=== PATIENT | female | born 1985 | race Caucasian/White ===

== ENCOUNTER 2016-09-06 00:25 | Inpatient (IN) ==
--- NOTE | 2016-09-06 01:07 | ED EKG INTERP ---
This chart was entered by Eric Edmond Scribe, acting as scribe for David Mir MD. EKG Interpretation - EKG Time of EKG reading by physician:: 00:48 EKG Read and Signed by:: David Mir EKG Interpretation (*Must complete 3 of following elements*): Abnormal ( biatrial enlargement; Nonspecific ST and T wave abnormality) Rate: 138 Rhythm: Sinus tachycardia with PAC with aberrant conduction This chart was documented by the indicated scribe, (Eric Edmond Scribe) and accurately reflects the services I performed and decisions made by , David Mir MD, as attested by the provider's signature.
[2016-09-06 03:24] LABS: BASO% 0.1 % (0.0-0.8); HEMATOCRIT 39.9 % (37.0-47.0); HEMOGLOBIN 13.9 g/dL (12.0-16.0); IMM GRAN# 0.04 X1000 (0.0-0.04); IMM GRAN% 0.2 % (0.0-0.5); LYMPH# 0.68 X1000 (1.2-3.4); LYMPH% 3.5 % (20.5-51.1); MANUAL DIFF NEEDED? NO; MCH 31.7 PG (27-31); MCHC 34.8 g/dL (33-37); MCV 90.9 FL (81-99); MONO# 1.21 X1000 (0.11-0.59); MONO% 6.1 % (1.7-9.3); MPV 11.9 FL (7.4-10.4); NEUT% 90.1 % (42.2-75.2); PLT 200 X1000 (130-400); RBC 4.39 XMIL (4.2-5.4)
[2016-09-06 03:48] LABS: AGAP 20; ALBUMIN 3.5 g/dL (3.5-5.0); ALKALINE PHOSPHATASE 49 U/L (32-104); AMYLASE 40 U/L (20-200); BUN 11 mg/dL (8-22); CALCIUM 8.9 mg/dL (8.8-10.2); CHLORIDE 96 mmol/L (98-107); COSMO 273; GOT 21 U/L (10-30); GPT 17 U/L (10-36); LIPASE 9 U/L (13-60); SODIUM 136 mmol/L (136-145); TCO2 20 mmol/L (25-35); TOTAL BILIRUBIN 0.45 mg/dL (0.20-1.00); TOTAL PROTEIN 7.4 g/dL (6.3-8.3)
[2016-09-06] MEDS ORDERED: NS 1,000 ML IV ONE ×2 (04:42→08:36)
[2016-09-06] MEDS ORDERED: ZOFRAN IV ONE (04:42)
[2016-09-06] MEDS ORDERED: ZOSYN 3.375 GM/NS 3.375 GM/50 ML IVPB IV ONE (07:35)
[2016-09-06] MEDS ORDERED: NS + KCL 20 MEQ 1,000 ML IV ONE (07:35)
[2016-09-06] MEDS ORDERED: FLAGYL 500 MG/NS 500 MG/100 ML IVPB IV ONE (07:35)
[2016-09-06 08:13] LABS: URINE CULTURE NEEDED? NO; URINE MICRO REVIEW NEEDED? NO; URINE SOURCE CLEAN CATCH
[2016-09-06 08:17] LABS: BILIRUBIN URINE NEGATIVE (NEGATIVE); BLOOD URINE SMALL (NEGATIVE); COLOR YELLOW; GLUCOSE URINE NEGATIVE (NEGATIVE); LEUKOCYTES URINE NEGATIVE (NEGATIVE); NITRITE URINE NEGATIVE (NEGATIVE); PH URINE 6.5; PROTEIN URINE 70 mg/dL (NEGATIVE); TURBIDITY URINE CLEAR (CLEAR); UR EPITHELIAL CELLS <10 /HPF (<10); URINE BACTERIA NEGATIVE /HPF; URINE RBC <10 /HPF (<10); URINE WBC <10 /HPF (<10); UROBILINOGEN URINE NORMAL (NORMAL)
[2016-09-06 08:25] LABS: SP GRAVITY URINE 1.015
[2016-09-06] MEDS ORDERED: DOXYCYCLINE 100 MG in NS 250 ML IV ONE (09:00)
[2016-09-06] MEDS ORDERED: PHENERGAN IV PRN (09:13)
[2016-09-06 09:39] LABS: ACETONE SERUM SMALL (NEGATIVE)
[2016-09-06] MEDS ORDERED: SODIUM CHLORIDE 0.9% 20 ML ONE (09:53)
[2016-09-06 09:54] LABS: ACETAMINOPHEN 1.8 ug/mL (10-30); INR 1.08; PROTIME 11.4 Seconds (9.2-11.7)
--- NOTE | 2016-09-06 10:10 | Diag Imaging Result Document ---
PROCEDURE NAME: CT ABD/PELVIS W/ IV CONT ONLY - 09/06/2016 CT ABDOMEN AND PELVIS WITH INTRAVENOUS CONTRAST: TECHNIQUE: Dose reduction protocol. FINDINGS: There is a nonspecific 4 mm noncalcified nodule in the left lower lobe. No basilar infiltrates. No pleural effusions. There is quite a bit of subcutaneous air and intraabdominal air apparently related to the patient's recent surgery. Normal spleen, pancreas, gallbladder, adrenal glands , liver, and kidneys. No hydronephrosis. Normal aorta. There is diffuse colonic wall thickening throughout with mild adjacent inflammation. The urinary bladder is only mildly distended and there is thickening to the wall. The uterus has been removed. There are prominent inflammatory changes within the pelvis. Questionable developing fluid collection in the midpelvis measuring approximately 1.5 x 4.5 cm. There is free fluid within the pelvis. IMPRESSION: 1. Diffuse colitis. 2. Recent hysterectomy with prominent pelvic inflammatory changes and possibly a developing abscess. 3. Likely reactive thickening to the wall of the urinary bladder rather than cystitis. A preliminary report was given at 7:14 a.m. MTDD
--- NOTE | 2016-09-06 10:31 | HISTORY AND PHYSICAL ---
CHIEF COMPLAINT: Diarrhea, vomiting, and fever. HISTORY OF PRESENT ILLNESS: Mrs. Gallardo is a 31-year-old, female, with no medical problems who is status post laparoscopic hysterectomy by Dr. Morales 3 days ago secondary to severe pelvic adhesions. Patient reports, since that time she has been having diffuse vomiting, diarrhea, and fever of 100.3 degrees Fahrenheit. She also reports that she had what she believes is a small amount of blood in her stool yesterday. She denies any overt abdominal pain. She has no other real complaints with the exception of the profuse vomiting and diarrhea. Her surgical report done on Thursday, surgery was done without complications. She came to the ER for evaluation. She was noted to have a white count and tachycardia consistent with sepsis. She was also acidotic with elevated anion gap and hypokalemic. CT of the abdomen and pelvis revealed diffuse colitis, small pelvic abscess, and cystitis. Dr. Morales with [employer] [employer] was consulted. He came and saw the patient and examined her in the ER. Blood cultures have been obtained and broad-spectrum antibiotics have been initiated. The patient is now going to be admitted for further treatment and evaluation. PAST MEDICAL HISTORY: None. SURGICAL HISTORY: 1. Recent laparoscopic hysterectomy. 2. section x2. SOCIAL HISTORY: Patient denies tobacco, alcohol, or drug use. FAMILY HISTORY: None. REVIEW OF SYSTEMS: Fourteen-point review of systems obtained and found to be negative with the exception of the HPI. ALLERGIES: Codeine. HOME MEDICATIONS: Tylenol and tramadol as needed. PHYSICAL EXAMINATION: VITAL SIGNS: Blood pressure is 110/59, heart rate 114, O2 saturation 97% on room air. Temperature is 98.4 degrees. GENERAL: This is a well-developed, well-nourished, female, lying in the hospital bed in no acute distress. NEUROLOGIC: The patient is awake, alert, and oriented. She follows commands without focal deficits. HEENT: Head atraumatic, normocephalic. Pupils are equal, round, reactive to light. Oral mucosa is dry. Trachea is midline. CHEST: Clear to auscultation bilaterally. CARDIOVASCULAR: Tachy but regular. S1-S2 is noted. No murmurs, gallops, clicks, or rubs. GASTROINTESTINAL: Laparoscopic surgical incisions are clean, dry, and intact. Belly is soft and nondistended. She has no tenderness to palpation. EXTREMITIES: Without edema, clubbing, or cyanosis. Pulses are palpable bilaterally. DIAGNOSTIC DATA: CT shows small pelvic abscess, colitis, and cystitis. There is also pneumoperitoneum which is expected postoperatively. WBC 19.71, hemoglobin 13.9, hematocrit 39.9, platelet count 200,000. Sodium 136, potassium 3.0, chloride 96, CO2 of 20, anion gap 20, BUN 11, creatinine 0.6, glucose 126. LFTs within normal limits. Albumin 3.5, lipase 9, lactate 1.1. UA is negative for any acute process. There is small blood and 70 protein. ASSESSMENT AND PLAN: 1. Sepsis: Source is likely to be an intra-abdominal process. Whether it be cystitis, colitis, or abscess. Blood cultures have been obtained. We will also culture urine and sputum. Continue broad-spectrum antibiotics directed at intra-abdominal processes. 2. Colitis/cystitis/intra-abdominal abscess: ASS[facility] RECOVERY SPECIALIST has seen the patient in the ER this morning. Dr. Morales does not feel the patient will need any type of I and D at this time. We are going to start Zosyn and doxycycline and send labs for gonorrhea and chlamydia for possible pelvic inflammatory disease, and we will also consult Infectious Disease. 3. Elevated anion gap metabolic acidosis: Lactate is within normal limits. Although lactate was drawn at 7:00 this morning, her initial anion gap acidosis was noted to be around midnight, and she has been getting fluids since then. We will go ahead and continue to work up with salicylate, acetaminophen, and acetone test. 4. Colitis: We are going to check stool studies and start Zosyn. ID has been consulted. 5. Deep venous thrombosis prophylaxis with sequential compression devices and TEDS. Given her recent surgery, further recommendations to follow. Dictated by NICOLETTE Salazar for Santos Aguilar MD cc: NICOLETTE Salazar MD
[2016-09-06] MEDS ORDERED: TYLENOL PO PRN (10:37)
[2016-09-06] MEDS ORDERED: SODIUM CHLORIDE 0.9% INJ SCH (10:37)
[2016-09-06] MEDS ORDERED: MORPHINE IV PRN (10:37)
[2016-09-06] MEDS ORDERED: SODIUM CHLORIDE 0.9% INJ PRN (10:37)
[2016-09-06] MEDS: PROTONIX IV SCH (11:04)
[2016-09-06] MEDS: NS 1,000 ML IV SCH ×3 (11:04→20:04)
[2016-09-06] MEDS: ZOSYN 3.375 GM/NS 3.375 GM/50 ML IVPB IV SCH ×3 (12:53→20:04)
[2016-09-06] MEDS: DOXYCYCLINE 100 MG in NS 250 ML IV SCH (20:04)
[2016-09-07] MEDS: ZOSYN 3.375 GM/NS 3.375 GM/50 ML IVPB IV SCH ×4 (02:14→20:04)
[2016-09-07] MEDS: NS 1,000 ML IV SCH ×4 (02:14→16:14)
[2016-09-07 07:23] LABS: HEMATOCRIT 33.3 % (37.0-47.0); HEMOGLOBIN 10.9 g/dL (12.0-16.0); MCH 31.1 PG (27-31); MCHC 32.7 g/dL (33-37); MCV 95.1 FL (81-99); MPV 11.6 FL (7.4-10.4); RBC 3.5 XMIL (4.2-5.4)
[2016-09-07 07:25] LABS: AGAP 11; BUN 5 mg/dL (8-22); CALCIUM 7.8 mg/dL (8.8-10.2); CHLORIDE 108 mmol/L (98-107); COSMO 277; SODIUM 140 mmol/L (136-145); TCO2 21 mmol/L (25-35)
--- NOTE | 2016-09-07 07:55 | PROGRESS NOTE ---
DATE: 09/07/2016 TIME: 0710. SUBJECTIVE: Patient is alert and oriented x3. Sitting in the bed. OBJECTIVE: She looks better than yesterday. Her temperature T-max over the last 24 hours was at the time of admission. She has been essentially 98.2 to 98.7 since yesterday evening. Her heart rate has slowed down from the 90s to the 70s. She is still very thirsty and still struggling with diarrhea. ASSESSMENT AND PLAN: Her preoperative diagnosis and her presenting complaint in clinic was abdominal pain and difficulty with bowel function. Since her surgery she has continued to have abdominal pain and is now struggling with severe diarrhea her stool samples show red blood cells as well as white blood cells suggestive of a colitis. Her cultures are negative at this point. The patient states she had a colonoscopy not too long ago. However, I am beginning to think that a lot of this still could be related to a colitis type picture and I have discussed this with the patient. We will continue with antibiotics per the hospitalist and I will continue to follow. cc: Christiano Morales MD
[2016-09-07] MEDS ORDERED: KLOR-CON PO ONE (08:11)
[2016-09-07] MEDS: IMODIUM PO PRN ×2 (09:13→16:14)
[2016-09-07] MEDS: DOXYCYCLINE 100 MG in NS 250 ML IV SCH (10:19)
[2016-09-07] MEDS: PROTONIX IV SCH (10:20)
--- NOTE | 2016-09-07 19:28 | PROGRESS NOTE ---
DATE: 09/07/2016 SUBJECTIVE: Today, Ms. Gallardo refers to be doing a little better. Denies any fever but had about 3 bowel movement which was diarrhea early on today. Abdominal pain has significantly improved. OBJECTIVE: Vital signs: Blood pressure is 111/58, pulse of 83, respirations 18, temperature 97.9 degrees. General: Ms. Gallardo is a 31-year-old female. She is in bed, not seemingly distress. HEENT: Mucosa is pink and moist. Anicteric. Acyanotic. Neck: Supple. Chest: Good air entry bilaterally. No crepitations. No rhonchi. SOUR BLEACHING PLEATER: Patient is alert and oriented x4. There is no focal neurological deficit. LABORATORY DATA: WBC is down to 8.46. Hemoglobin is 10.9. Platelet count is 173,000. Sodium is 140. Potassium is 3. Chloride is 108. Bicarb is 21. Vitamin D is 14.6 [address] is low[address] A CT scan of the abdomen and pelvis which was done on presentation did show diffuse colitis. Recent hysterectomy with prominent pelvic inflammatory changes and possible developing abscess. ASSESSMENT: 1. Diffuse colitis. So far, cultures have been negative. We will continue with the current antibiotics. 2. Postsurgical pelvic inflammatory changes with possible abscess. I think this is related to the surgery. Patient is being followed by Dr. Morales, the DIRECTOR OF CLINICAL EDUCATION, who did the surgery itself. Patient is currently on Zosyn, and we have added doxycycline just to cover any pelvic inflammatory infections. 3. Sepsis, clinically improving. 4. Vitamin D deficiency. We will continue to replace. 5. Hypokalemia. We will replace this as well. I think in general, Ms. Gallardo is doing a whole lot better. We are going to continue with the current antibiotics, and patient is being followed by [facility] [facility]. She does have significant enteritis on the CT scan. However, at this point, it is going to be risky to do any GI procedure. 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 The patient seems to be clinically improving which is reassuring, we will, therefore, continue the current therapy. cc: Santos Aguilar MD
[2016-09-07] MEDS: VITAMIN D PO SCH (20:04)
--- NOTE | 2016-09-07 23:23 | CONSULTATION ---
DATE OF CONSULTATION: 09/07/2016 CONCLUSION: The patient has posthysterectomy and bilateral salpingo- oophorectomy fever. On CAT scan, she does have a diffuse colitis which could be the cause of her fever. There was no evidence of an abscess that had formed or any perforation of bowel. RECOMMENDATIONS: I agree with the decision to treat the patient with Zosyn. I do not think doxycycline is needed at this time. DISCUSSION: The patient 5 days ago had a robotic hysterectomy and bilateral salpingo- oophorectomy. In the operative report the surgeon said that there were extensive adhesions. The patient has developed a fever. She was having abdominal pain, vomiting, diarrhea and as mentioned above, fever for the past 3 days. The patient's laboratory studies, initially her white count was 19,710. Today her white count was 8460, hemoglobin 10.9, and platelet count 173 ,000. Creatinine was 0.5. GFR is greater than 60. Urinalysis was negative. CAT scan of the abdomen and pelvis showed colitis, prominent pelvic inflammation with possible abscess formation and a thickened bladder wall. PAST MEDICAL HISTORY/REVIEW OF SYSTEMS: Eyes and ears: She denies difficulty hearing or seeing. Neck: No stiffness. Respiratory: No cough or shortness of breath. Cardiac : No chest pain or palpitations. GI: The patient did have as mentioned above, abdominal pain, vomiting and diarrhea all of which has gotten better since being in the hospital. Endocrine: No history of diabetes or thyroid disease. Bones, joints, muscles: No swollen joints or muscle tenderness. Neurologic: No seizures or motor sensory loss. Integument: No rash. PLOW MECHANIC HISTORY: She is a 3, para 3, AB 0. She delivered 1 of her children by . As mentioned above, she has had a total abdominal hysterectomy and bilateral salpingo- oophorectomy. PREVIOUS HOSPITALIZATIONS AND OPERATIONS: See PLOW MECHANIC above. Patient also has had colonoscopy. MEDICAL DISEASES: Negative for diabetes mellitus and hypertension. INFECTIOUS DISEASE HISTORY: Negative for pneumonia and UTI. FAMILY HISTORY: Positive for cancer, diabetes mellitus, and hypertension. SOCIAL HISTORY: [place] She is allergic to codeine. She is . She has a dog as a pet. 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 HOME MEDICATIONS: Include Tylenol and tramadol. PRESENT ILLNESS: The stools for Clostridium difficile antigen and toxin were negative. Urine and blood cultures are negative. Stool for O and P is negative and stool for enteric pathogens also was negative. PHYSICAL EXAMINATION: Vital Signs: Temperature is 98 degrees, pulse 76, respirations 18, blood pressure 110/62. Patient weighs 118 pounds. General: This is a somewhat ill- appearing, young female. She is in no acute distress. Head, eyes, ears, nose, and throat: No drainage noted from the nose or ears. Mouth did not have any adhesions. Neck: No stiffness. Lungs: Clear to auscultation. Cardiovascular: Regular heart rate. Abdomen: Soft and nontender to light palpation. The incisions used at surgery appear to be healing well. They are not red and they are not draining. Neurologic: Patient is alert. She can move her extremities. There is no tremor. Her sensation is intact to touch. Her memory as regarding her medical history is intact. Integument: No rash noted. Thank you for the consult. cc: Vahid Barnhart MD MTDD
[2016-09-08] MEDS: ZOSYN 3.375 GM/NS 3.375 GM/50 ML IVPB IV SCH (06:33)
[2016-09-08] MEDS: NS 1,000 ML IV SCH ×2 (06:33→06:34)
--- NOTE | 2016-09-08 07:03 | PROGRESS NOTE ---
DATE: 09/08/2016 SUBJECTIVE: Patient is alert oriented x3. Sitting in the bed, smiling. States she is feeling good and wants to go home. OBJECTIVE: She has been afebrile since her admission. All of her blood work and testing has been negative. ASSESSMENT AND PLAN: Routine care per hospitalist. I am in full supportive of her discharge home on p.o. antibiotics. I have instructed the patient that I will not see her for routine postoperative visit. Again, I have reminded the patient that if she had any problems postoperatively she is to call my office. cc: Christiano Morales MD
[2016-09-08 07:18] LABS: HEMATOCRIT 31.9 % (37.0-47.0); HEMOGLOBIN 10.6 g/dL (12.0-16.0); MCH 31.6 PG (27-31); MCHC 33.2 g/dL (33-37); MCV 95.2 FL (81-99); MPV 11.7 FL (7.4-10.4); RBC 3.35 XMIL (4.2-5.4)
[2016-09-08 08:00] LABS: AGAP 14; BUN 2 mg/dL (8-22); CALCIUM 7.9 mg/dL (8.8-10.2); CHLORIDE 108 mmol/L (98-107); COSMO 278; POTASSIUM 3.9 mmol/L (3.5-5.1); SODIUM 142 mmol/L (136-145); TCO2 20 mmol/L (25-35)
[2016-09-08 08:12] VITALS: BP 120/76
[2016-09-08] MEDS: VITAMIN D PO SCH (08:47)
[2016-09-08] MEDS ORDERED: FLAGYL PO SCH (13:00)
[2016-09-08] MEDS ORDERED: CIPRO PO SCH (21:00)
--- NOTE | 2016-09-09 11:00 | DISCHARGE SUMMARY ---
ADMISSION DATE: 09/06/2016 DISCHARGE DATE: 09/08/2016 CONSULTATION: 1. Dr. Vahid Barnhart of infectious disease. Pertinent procedure with Abdomen and pelvis CT showed diffuse colitis, recent hysterectomy with prominent pelvic inflammatory changes and possible developing abscess, likely reactive, thickening to the wall of the urinary bladder rather than cystitis. 2. Dr. Christiano Morales, [employer] SUPER[employer]. DISCHARGE DIAGNOSES: 1. Diffuse colitis with negative cultures. Continue antibiotics. 2. Postsurgical pelvic inflammatory changes with possible abscess. The patient is followed by Dr. Morales who did her recent hysterectomy. She instructed the patient that she will not be seeing her for routine postop visit, and reminded the patient that if she had any problems postoperatively to call her office, and she is agreeable with the discharge on oral antibiotics. 3. Sepsis, resolved. 4. Vitamin D deficiency. Continue replacement. 5. Hyperkalemia, resolved. HOSPITAL COURSE: Briefly, Ms. Gallardo is a 31-year-old, female with no medical problems, status post laparoscopic hysterectomy by Dr. Morales 3 days prior to her admission secondary to severe pelvic adhesions. She reports since that time she has had diffuse vomiting, diarrhea and a fever of 100.3. She also believes that she had a small amount of blood in her stool the day before her admission. Denied any overt abdominal pain. Her surgical report that was done on Thursday when the surgery was done without any complications. She came to the ED for evaluation and was noted to have a white count tachycardic consistent with sepsis. She was acidotic with an elevated ion gap and hypokalemic. CT of the abdomen and pelvis revealed diffuse colitis and small pelvic abscess and cystitis. Dr. Morales with [employer] SUPER[employer] was consulted. He came to see the patient and examined her in the ED. Blood cultures were obtained. Patient was started on broad-spectrum antibiotics, as well as an infectious disease consult. She was aggressively hydrated. The patient stool samples only showed red blood cells and white blood cells suggestive of colitis. Cultures have all been negative at this point. Dr. Morales felt that all of this could be related to a colitis type problem and to continue antibiotics. Dr. Barnhart felt that the patient only needed treatment with Zosyn and stopped the doxycycline. Dr. Morales also felt the patient was appropriate for discharge home on p.o. antibiotics. She does not need to follow up for her postoperative visit. Today, the patient is clinically stable for discharge. VITAL SIGNS: Temperature is 97.2 degrees, heart rate 89, respirations 18, blood pressure is 120/76, O2 is 100% on room air. DISCHARGE MEDICATIONS: 1. Tylenol 1000 mg p.o. q. 8 hours p.r.n. 2. Vitamin D 3 1000 units p.o. daily. 3. Cipro 500 mg p.o. b.i.d. 4. Flagyl 250 mg p.o. t.i.d. 5. Ultram 500 mg p.o. q. 6 hours p.r.n. pain. FOLLOW UP: The patient is being discharged back home to continue her full course of antibiotics. She will follow up with her primary care physician, Dr. Draper, in 1 week. Patient can return to the ED for any worsening of symptoms. DISCHARGE TIME: 30 minutes. Dictated by NICOLETTE Baires for Santos Aguilar MD cc: Santos Aguilar MD
--- NOTE | 2016-09-10 17:55 | PROVIDER DOCUMENTATION ---
This chart was entered by Eric Edmond Scribe, acting as scribe for David Mir MD. HPI-General Adult - General Source: patient <Didier Weber I - Last Filed: 09/06/16 08:51> - General Source: patient - History of Present Illness -Gen Adult Nature of Presenting Problems: Pt s a 31 yof who presents to ER with CC of N/V/D that started yesterday. Pt reports that she had a hysterectomy performed on Thursday and was fine until yesterday when she developed the N/V/D. Pt reports that she called her surgeon and was told by the nurse to take phenergan, which pt vomited after taking. Pt also complains of F/chills. Location of Pain/Injury: reports: abdomen Pain Radiation: reports: no radiation Quality of Pain: reports: aching, cramping, sharp Severity: reports: severe Onset/Duration: reports: 24 hours ago Timing: reports: still present Associated Symptoms: reports: diarrhea, fatigue, fever/chills, loss of appetite , nausea, vomiting, weakness. denies: anxiety, arm pain, back/neck pain, chest pain, constipation, cough, diaphoresis, dizziness, EENT symptoms, genitourinary problems, headaches, heartburn, joint pain, malaise, muscle aches, sinus congestion/drainage, rash, seizure, shortness of breath, sensory/motor loss, pain with inspiration, swelling/mass in abdomen, syncope, trouble walking Similar Symptoms Previously?: No Recently seen or treated by another doctor?: Yes <David Mir - Last Filed: 09/10/16 17:54> - General Chief Complaint: Post Op Complaint Stated Complaint: N/V/D, FEVER Time Seen by Provider: 09/06/16 01:07 Allergies/Adverse Reactions: Patient Allergies Allergy/AdvReac Type Severity Reaction Status Date / Time codeine Allergy Unknown Verified 09/06/16 01:42 Home Medications: Home Medication List Medication Instructions Recorded Confirmed Last Taken Type Acetaminophen [Tylenol] 1,000 mg PO Q8H PRN 09/06/16 09/06/16 09/05/16 14:00 History Tramadol HCl 50 mg PO Q6H PRN 04/22/17 04/22/17 04/21/17 History Cholecalciferol (Vit D3) [Vitamin 1,000 unit PO DAILY #60 tablet 09/08/16 Unknown Rx D3] Ciprofloxacin [Cipro] 500 mg PO BID #14 tablet 09/08/16 Unknown Rx Metronidazole [Flagyl] 250 mg PO TID #21 tablet 09/08/16 Unknown Rx Review of Systems - Adult - REVIEW OF SYSTEMS - ADULT Constitutional: reports: chills, fever Eyes: reports: no symptoms reported Ears, Nose, Mouth & Throat: reports: no symptoms reported Respiratory: reports: no symptoms reported <Didier Weber I - Last Filed: 09/06/16 08:51> - REVIEW OF SYSTEMS - ADULT Constitutional: reports: chills, fever, fatique. denies: night sweats, weight gain, weight loss Eyes: reports: no symptoms reported Ears, Nose, Mouth & Throat: reports: no symptoms reported Cardiovascular: denies: chest pain, edema, heart murmur, irregular heart rate, orthopnea, palpitations, poor circulation, PND, syncope Respiratory: reports: no symptoms reported Gastrointestinal: reports: abdominal pain, diarrhea, nausea, poor appetite, vomiting. denies: hematemesis, constipation, difficulty swallowing, frequent heartburn, rectal bleeding Genitourinary: reports: no symptoms reported Musculoskeletal: reports: no symptoms reported Integumentary: reports: no symptoms reported Neurological: reports: no symptoms reported Psychiatric: reports: no symptoms reported Endocrine: reports: no symptoms reported Hematologic/Lymphatic: reports: no symptoms reported Allergic/Immunologic: reports: no symptoms reported All Other Systems: Reviewed and Negative <David Mir - Last Filed: 09/10/16 17:54> Past History - Adult - PAST MEDICAL HISTORY-ADULT Review of Records: reports: Old Records Reviewed, Nursing Assessment Review, Medications Reviewed, Social history reviewed & non-contributory. <Didier Weber I - Last Filed: 09/06/16 08:51> - PAST MEDICAL HISTORY-ADULT Review of Records: reports: Nursing Assessment Review, Medications Reviewed - PRIOR SURGERIES/PROCEDURES Surgical/Procedure History: reports: hysterectomy - IMMUNIZATION STATUS Childhood Immunizations: See Nurse Assessment Flu Vaccine: See Nurse Assessment <David Mir - Last Filed: 09/10/16 17:54> Physical Exam-General - CONSTITUTIONAL General Appearance: appears well - EYES Eyes: PERRL/EOMI, pink conjunctivae, fundi clear, no AV nicking - HEAD, EARS, NOSE, MOUTH & THROAT HENMT: normocephalic/atraumatic, moist mucous membranes <Didier Weber I - Last Filed: 09/06/16 08:51> - CONSTITUTIONAL General Appearance: appears well, alert, moderate distress, anxious, lethargic, slow to respond. negative: no apparent distress, mild distress, severe distress , cachetic, obese, thin, obtunded, combative - EYES Eyes: PERRL/EOMI, pink conjunctivae, fundi clear, no AV nicking. negative: pale conjunctivae, photophobia, sclera injected, scleral icterus - HEAD, EARS, NOSE, MOUTH & THROAT HENMT: normocephalic/atraumatic, moist mucous membranes, normal ENT inspection, TMs normal, pharynx normal. negative: pharyngeal erythema, tonsillar exudate, TM abnormal - NECK Neck: non-tender, full range of motion, supple, normal inspection. negative: C- spine tenderness, limited range of motion, lymphadenopathy - RESPIRATORY Respiratory: chest non-tender, lungs clear, normal breath sounds, no pleuratic chest pain, no respiratory distress, no accessory muscle use. negative: respiratory distress, decreased breath sounds, accessory muscle use, wheezing - CARDIOVASCULAR Cardiovascular: normal peripheral pulses, tachycardia. negative: regular rate, rhythm, bradycardia, irregularly irregular - GASTROINTESTINAL (ABDOMEN) Abdominal Exam: normal bowel sounds, soft, no organomegaly, no pulsatile mass, tenderness (RUQ/superpubic/LLQ). negative: non tender - MUSCULOSKELETAL Back Exam: normal inspection, no CVA tenderness, no vertebral tenderness. negative: CVA tenderness, decreased range of motion, ecchymosis, muscle spasm, swelling, vertebral tenderness Extremity: normal range of motion, non-tender, normal gait, normal inspection, no pedal edema, no calf tenderness, normal capillary refill. negative: deformity, erythema, inflammation, swelling, tenderness - SKIN Integumentary: normal color, normal turgor, warm/dry. negative: abrasion(s), diaphoresis, ecchymosis, erythema, laceration(s), swelling, tenderness, warm - NEUROLOGIC Neurologic: odd shoe examiner II-XII nml as tested, grossly normal, no motor/sensory deficits . negative: facial droop, focal weakness, motor weakness, sensory deficit - PSYCHIATRIC Psych/Mental Status: normal thought content, normal thought process, oriented x 3, anxious, disheveled, depressed affect, tearful. negative: normal mood/affect <David Mir - Last Filed: 09/10/16 17:54> Progress - PLAN OF CARE/RESULTS Progress/Plan/Lab Results: Vital Signs - 8 hr 09/06/16 00:28 09/06/16 02:30 09/06/16 03:44 Temperature 98.4 F Pulse Rate 146 H 121 H 128 H Respiratory Rate 24 19 18 Blood Pressure 103/79 112/76 109/79 O2 Sat by Pulse Oximetry 100 97 98 09/06/16 05:10 09/06/16 06:45 Temperature Pulse Rate 120 H 114 H Respiratory Rate 17 20 Blood Pressure 107/73 110/59 O2 Sat by Pulse Oximetry 100 97 Laboratory Results - last 24 hr 09/06/16 09/06/16 02:50 02:50 WBC 19.71 H RBC 4.39 Hgb 13.9 Hct 39.9 MCV 90.9 MCH 31.7 H MCHC 34.8 RDW Std Deviation 12.5 Plt Count 200 MPV 11.9 H Immature Gran % (Auto) 0.2 Neut % (Auto) 90.1 H Lymph % (Auto) 3.5 L Porter % (Auto) 6.1 Eos % (Auto) 0.0 Baso % (Auto) 0.1 Immature Gran # (Auto) 0.04 Neut # (Auto) 17.76 H Lymph # (Auto) 0.68 L Porter # (Auto) 1.21 H Eos # (Auto) 0.00 Baso # (Auto) 0.02 Sodium 136 Potassium 3.0 L Chloride 96 L Carbon Dioxide 20 L Anion Gap 20 BUN 11 Creatinine 0.6 Estimated GFR/1.73 m2 > 60 BUN/Creatinine Ratio 18 Glucose 126 H Calculated Osmolality 273 Calcium 8.9 Total Bilirubin 0.45 AST 21 ALT 17 Alkaline Phosphatase 49 Total Protein 7.4 Albumin 3.5 Globulin 3.9 Albumin/Globulin Ratio 0.9 Amylase 40 Lipase 9 L Orders Category Date Time Status Saline Loc DIRECTED Care 09/06/16 03:02 Active NPO Diet 09/06/16 03:[address] ABD/PELVIS W/ IV CONT ONLY [CT] Stat Exams 09/06/16 04:44 Taken AMYLASE [CHEM] Stat Lab 09/06/16 02:50 Completed BLOOD CULTURE [BLDCUL] Stat Lab 09/06/16 05:25 Received CBC WITH ELECTRONIC DIFF [HEME] Stat Lab 09/06/16 02:50 Completed COMPREHENSIVE METABOLIC PANEL [CHEM] Stat Lab 09/06/16 02:50 Completed LACTATE, PLASMA [CHEM] Stat Lab 09/06/16 07:36 Uncollected LIPASE [CHEM] Stat Lab 09/06/16 02:50 Completed UA NIMS W/REFLEX CULT [URINALYSIS] Stat Lab 09/06/16 07:28 Uncollected 0.9% Sodium Chloride Inj [Ns] 1,000 ml Med 09/06/16 04:42 Discontinued IV 999 mls/hr Flagyl 500 mg IV Now Med 09/06/16 07:35 Ordered Metronidazole 500 mg/Ns [Flagyl 500 mg/Ns] 500 mg in 100 ml IV NOW Ns + KCl 20 Meq 1,000 ml Med 09/06/16 07:35 Ordered IV WIDE OPEN Ondansetron [Zofran] Med 09/06/16 04:42 Discontinued 4 mg IV NOW ONE Zosyn 3.375 gm/Ns IV Now Med 09/06/16 07:35 Ordered Piperacil/Tazobact 3.375 gm/Ns [Zosyn 3.375 gm/Ns] 50 ml IV NOW EKG [EKG] Stat Ther 09/06/16 00:39 Ordered Result Diagrams: 09/06/16 02:50 09/06/16 02:50 - CT/MRI 1 Impression: Abnormal MRI Study: Abdomen, Pelvis (focal pelvic fluid collection concerning for an abscess. Possible acute colits and PID) - CONSULTS/PCP/HOSPITALIST Notification Time Discussed: 07:38 Reason/Comments: Case discussed with Dr. Morales. He is coming to ED to evaluate patient Consult Disposition: Will see in ED #2 Consult: Case discussed with Dr. Aguilar Time Discussed: 08:49 Consult Disposition: Admit Consult Disposition: Admit <Didier Weber I - Last Filed: 09/06/16 08:51> - PLAN OF CARE/RESULTS Progress/Plan/Lab Results: Vital Signs - 8 hr 09/06/16 00:28 09/06/16 02:30 09/06/16 03:44 Temperature 98.4 F Pulse Rate 146 H 121 H 128 H Respiratory Rate 24 19 18 Blood Pressure 103/79 112/76 109/79 O2 Sat by Pulse Oximetry 100 97 98 Laboratory Results - last 24 hr 09/06/16 09/06/16 02:50 02:50 WBC 19.71 H RBC 4.39 Hgb 13.9 Hct 39.9 MCV 90.9 MCH 31.7 H MCHC 34.8 RDW Std Deviation 12.5 Plt Count 200 MPV 11.9 H Immature Gran % (Auto) 0.2 Neut % (Auto) 90.1 H Lymph % (Auto) 3.5 L Porter % (Auto) 6.1 Eos % (Auto) 0.0 Baso % (Auto) 0.1 Immature Gran # (Auto) 0.04 Neut # (Auto) 17.76 H Lymph # (Auto) 0.68 L Porter # (Auto) 1.21 H Eos # (Auto) 0.00 Baso # (Auto) 0.02 Sodium 136 Potassium 3.0 L Chloride 96 L Carbon Dioxide 20 L Anion Gap 20 BUN 11 Creatinine 0.6 Estimated GFR/1.73 m2 > 60 BUN/Creatinine Ratio 18 Glucose 126 H Calculated Osmolality 273 Calcium 8.9 Total Bilirubin 0.45 AST 21 ALT 17 Alkaline Phosphatase 49 Total Protein 7.4 Albumin 3.5 Globulin 3.9 Albumin/Globulin Ratio 0.9 Amylase 40 Lipase 9 L Orders Category Date Time Status Saline Loc DIRECTED Care 09/06/16 03:02 Active NPO Diet 09/06/16 03:02 Active AMYLASE [CHEM] Stat Lab 09/06/16 02:50 Completed CBC WITH ELECTRONIC DIFF [HEME] Stat Lab 09/06/16 02:50 Completed COMPREHENSIVE METABOLIC PANEL [CHEM] Stat Lab 09/06/16 02:50 Completed LIPASE [CHEM] Stat Lab 09/06/16 02:50 Completed EKG [EKG] Stat Ther 09/06/16 00:39 Ordered Result Diagrams: 09/08/16 05:50 09/08/16 05:50 <David Mir - Last Filed: 09/10/16 17:54> Departure - Departure Time of Disposition Decision: 08:49 Certified Medical Emergency: Emergent <Didier Weber I - Last Filed: 09/06/16 08:51> - Departure Time of Disposition Decision: 08:49 Certified Medical Emergency: Emergent - Critical Care Note This patient required my direct personal management.: No <David Mir - Last Filed: 09/10/16 17:54> - Departure DIAGNOSIS: Sepsis with hypotension Disposition: ADMITTED INPATIENT 09 Condition: Stable Attestation - Physician/ SELMA Attestation Patient care was provided by Advanced Practice Provider:: Yes Advanced Practice Provider documentation review:: The Mid-level provider documentation, treatment plan and medical decision making was reviewed by the physician who agrees with all treatment and medical decision making by the MLP. The physician spent face to face time with patient:: Yes Advanced Practice Provider documentation review:: The physician spent face to face time with this patient and agrees with all MLP documentation, treatment, and medical decision making by the MLP. See provider notes for further information. <Didier Weber I - Last Filed: 09/06/16 08:51> This chart was documented by the indicated scribe, (Eric Edmond Scribe) and accurately reflects the services I performed and decisions made by me, David Mir MD, as attested by the provider's signature.
== END 2016-09-08 12:22 | disposition home or self-care (01) ==
LOC: ED 00:25 → 3N 09:19
PROVIDERS: ATTEND Internal Medicine